=== PATIENT | female | born 1990 ===

== ENCOUNTER → 2020-03-10 | Outpatient (REF) | payer OTHER, MEDICAID ==
[2020-03-10 17:30] LABS: RHEUMATOID FACTOR QUANT < 10.0 IU/ML (<15.0)
[2020-03-10 17:40] LABS: VITAMIN B12 LEVEL > 2000 PG/ML (247-911)
[2020-03-10 18:31] LABS: FERRITIN 3 NG/ML (8-252); IRON (FE) 9 UG/DL (50-170); PERCENT SATURATION 1.9 % (13.2-45.0); TOTAL IRON BINDING CAPACITY 485 UG/DL (250-450)
[2020-03-13 12:08] LABS: ANTI DS-DNA AB Negative (Negative); ANTI-CHROMATIN ANTIBODIES 0.2 AI (0.0-0.9); ANTINUCLEAR ANTIBODIES DIRECT Negative (Negative); CYCLIC CITRULLINATED PEPTIDE 7 units (0-19); RNP ANTIBODIES 0.5 AI (0.0-0.9); SJOGREN'S ANTI SS-A <0.2 AI (0.0-0.9); SJOGREN'S ANTI SS-B <0.2 AI (0.0-0.9); SMITH ANTIBODIES <0.2 AI (0.0-0.9)
== END ==
LOC: M LAB REF 16:29
PROVIDERS: ATTEND Internal Medicine
DX: D51.9 Vitamin B12 deficiency anemia, unspecified (principal); Z98.84 Bariatric surgery status; M25.50 Pain in unspecified joint

== ENCOUNTER → 2020-08-01 | Outpatient (REF) | payer BC, MEDICAID ==
[2020-08-01 19:10] LABS: PERCENT SATURATION 7.3 % (13.2-45.0)
== END ==
LOC: M LAB REF 16:29
PROVIDERS: ATTEND Internal Medicine
DX: Z98.84 Bariatric surgery status (principal); D51.9 Vitamin B12 deficiency anemia, unspecified